=== PATIENT | female | born 1990 | race Caucasian/White ===

== ENCOUNTER 2016-08-16 10:58 | Emergency (ER) | payer OTHER ==
[2016-08-16 11:13] VITALS: BP 117/62; PULSE 94; RESP 16; TEMP 98.4; O2SAT 96
--- NOTE | 2016-08-16 12:59 | UCPHY ---
H & P Time Seen by Provider: 08/16/16 12:48 Patient Type: New HPI/ROS: This patient presents with a chief complaint of a sore throat associated with a swollen lymph gland on the right side of her neck. The lymph gland began 2 days ago and before the throat actually became sore. She denies significant nasal congestion or cough or fever. She does have a mild headache and myalgias. 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 Smoking Status: Never smoked Physical Exam: This is a well-developed well-nourished female who appears to be quite uncomfortable. She is alert and lucid. She is afebrile at triage. Throat: Mucous membranes are moist. Tonsils are swollen, quite red with exudate bilaterally although worse on the right. Neck: On the right side of the superior neck ears obvious swelling with significant tenderness. There is no posterior adenopathy Ears: Normal Constitutional: Initial Vital Signs Temperature (C) 36.9 C 08/16/16 11:11 Heart Rate 94 08/16/16 11:11 Respiratory Rate 16 08/16/16 11:11 Blood Pressure 117/62 08/16/16 11:11 O2 Sat (%) 96 08/16/16 11:11 O2 Delivery Mode Room Air Allergies/Adverse Reactions: gluten Allergy (Verified 08/16/16 11:13) Home Medications: Medication Instructions Recorded Lo Marcus Fe 1-10 Tablet 08/16/16 Penicillin V Potassium [Pen Vk] 500 mg PO BID #20 tab 08/16/16 Medical Decision Making Differential Diagnosis: Given this patient's clinical picture I believe that she does in fact have strep tonsillitis and that the rapid strep screen is a false negative. She was consequently treated with penicillin. - Data Points Laboratory Results: 08/16/16 08/16/16 Unknown 11:11 Group A Strep Screen NEGATIVE (NEGATIVE) Group A Strep DNA Pending Departure - Departure Disposition: Home, Routine, Self-Care Clinical Impression: Streptococcal tonsillitis Condition: Good Instructions: Strep Throat (ED) Additional Instructions: If your symptoms have not improved in 3-5 days you should be re-evaluated. The possibility of infectious mono remains. A throat culture will follow the negative strep screen and if positive this will confirmed my suspicions. Keep herself well hydrated but do not force herself to eat. Adult Pain & Fever Control: We recommend Acetaminophen (Tylenol) and Ibuprofen (Motrin, Advil) for pain and fever control. When fever is high or pain severe, both drugs can be used at the same time, but at different intervals. Please note the time differences. Your dose is: Acetaminophen [650]mg every 4 to 6 hours ibuprofen [600]mg every [6] hours with food OR naproxen Sodium (Aleve) [440]mg every 12 hours. Note: do not take Acetaminophen with Hydrocodone (Vicodin, Lortab) or Oxycodone (Percocet). These medications also contain Acetaminophen. No more than 3000 mg of Acetaminophen should be taken in 24 hours (for an adult) . The maximal dose of ibuprofen that it is safe in a 24-hour period is 2400 mg. You may take 400 mg every 4 hours, 600 mg every 6 hours or 800 mg every 8 hours safely. Referrals: NONE *PRIMARY CARE P,. [Primary Care Provider] - As per Instructions Prescriptions: Penicillin V Potassium [Pen Vk] 500 mg PO BID #20 tab - PQRS PQRS Measurement: Not applicable
== END 2016-08-16 12:59 | disposition home or self-care (01) ==
LOC: CED 10:58
DX: J03.00 Acute streptococcal tonsillitis, unspecified (principal)
CPT/HCPCS: 87880-PO; G0463-PO